=== PATIENT | female | born 1965 | race Caucasian/White ===

== ENCOUNTER 2020-10-29 19:43 | Emergency (ER) | payer BC ==
[~2020-10-29] VITALS: Ht 154.9 cm; Wt 86.2 kg
[2020-10-29 19:53] VITALS: Ht 154.9 cm; Wt 86.2 kg
[2020-10-29] MEDS ORDERED: GABAPENTIN100 MG PO (19:54)
[2020-10-29] MEDS ORDERED: [UNRECOGNIZED DRUG - OTHER] (19:54)
[2020-10-29 20:36] LABS: BASOPHILS 0.8 % (0-2); EOSINOPHILS 1.9 % (0-7); HEMATOCRIT 34.4 % (36.0-48.0); MCH 25.1 pg (26.0-34.0); MCHC 31.9 g/dL (31.0-37.0); MCV 78.7 fL (80.0-100.0); MEAN PLATELET VOLUME 6.8 fL (7.4-10.4); NEUTROPHILS 56.3 % (40-80); PLATELET COUNT 363 10x3/uL (130-400); RBC 4.37 10x6/uL (4.00-5.40); RDW 20.5 % (11.5-14.5); WBC 8.6 10x3/uL (4.8-10.8)
[2020-10-29 20:43] LABS: ANION GAP 11.5 mmol/L (8-16); CALCIUM 9.5 mg/dL (8.5-10.1); CREATININE - SERUM 0.9 mg/dL (0.6-1.3); POTASSIUM - SERUM 3.5 mmol/L (3.5-5.1)
[2020-10-29 20:48] LABS: UDS - AMPHET NEGATIVE QUAL (NEGATIVE); UDS - BARB NEGATIVE QUAL (NEGATIVE); UDS - BENZO NEGATIVE QUAL (NEGATIVE); UDS - COCAINE NEGATIVE QUAL (NEGATIVE); UDS - OPIATE NEGATIVE QUAL (NEGATIVE); UDS - PCP NEGATIVE QUAL (NEGATIVE); UDS - THC NEGATIVE QUAL (NEGATIVE)
[2020-10-29 20:49] LABS: BACTERIA FEW HPF (<MOD); BILIRUBIN NEGATIVE (NEGATIVE); KETONE NEGATIVE mg/dL (< 1+); NITRITE NEGATIVE (NEGATIVE); PH 5.5 (5.0-8.0); SQUAMOUS EPITHELIAL 10 HPF (0-4); UROBILINOGEN NORMAL mg/dL (< 2); WHITE CELLS - URINE 160 HPF (0-4)
[2020-10-29 20:49] LABS: ALBUMIN 3.5 g/dL (3.4-5.0); BILIRUBIN - TOTAL 0.12 mg/dL (0.2-1.3); PROTEIN - SERUM 7.2 g/dL (6.4-8.2)
[2020-10-29] MEDS ORDERED: BACTRIM DS TAB1 EAC1 PO (22:53)
[2020-10-29] MEDS ORDERED: MACROBID100 MG PO (22:53)
[2020-10-30] VITALS: BP 141/73
== END 2020-10-30 00:01 | disposition home or self-care (01) ==
LOC: D.ER 19:43
PROVIDERS: Emergency Medicine
DX: R51.9 Headache, unspecified (principal); D64.9 Anemia, unspecified; N39.0 Urinary tract infection, site not specified